=== PATIENT | male | born 1940 | race Caucasian/White ===

== ENCOUNTER 2020-04-17 07:51 | Day surgery (SDC) | payer MEDICARE ==
[2020-04-16 10:06] LABS: BASOPHILS % (AUTO) 1 % (0-1); EOSINOPHILS % (AUTO) 2 % (1-7); LYMPHOCYTES % (AUTO) 18 % (22-44); MEAN CORPUSCULAR HEMOGLOBIN 33.4 pg (27.5-34.5); MEAN CORPUSCULAR HGB CONC 34.2 g/dL (33.2-36.2); MEAN PLATELET VOLUME 8.6 fL (7.4-10.4); MONOCYTES % (AUTO) 10 % (2-9); NEUTROPHILS % (AUTO) 70 % (42-75); PLATELET COUNT 226 x10^3/uL (130-400); RED BLOOD COUNT 4.56 x10^6/uL (4.38-5.82); RED CELL DISTRIBUTION WIDTH 12.8 % (9.4-14.8)
[2020-04-16 10:07] LABS: MD NO
[2020-04-16 10:15] LABS: ALBUMIN 3.7 g/dL (3.4-5.0); ANION GAP 4 mmol/L (5-15); CALCIUM 8.8 mg/dL (8.5-10.1); CHLORIDE 109 mmol/L (98-107); PROTHROMBIN TIME 10.7 Seconds (9.6-11.5)
[2020-04-16 10:19] LABS: ALANINE AMINOTRANSFERASE 26 U/L (12-78); ALKALINE PHOSPHATASE 88 U/L (45-117); BILIRUBIN,TOTAL 0.8 mg/dL (0.2-1.0); CREATININE 0.98 mg/dL (0.7-1.3)
[~2020-04-17] VITALS: Ht 175.3 cm; Wt 83.7 kg
[~2020-04-17 07:51] MED LIST: ASCO250T12 PO; ASPI81TA45 PO; ATOR10TA9 PO; BENA10TA59 PO; CALC1CAP8 PO; CHOL10003 PO; EPINEPHRINE 1 MG/ML, 1ML ONE; KETOROLAC 60 MG/2 ML ONE; MULT-658 PO; OMEG1CAP25 PO; ROPIvacaine/PF 0.5%, 20 ML ONE; ROPIvacaine/PF 0.5%, 30 ML ONE; SODIUM CHLORIDE 0.9% 50 ML ONE; TRANEXAMIC ACID 100 MG/ML, 10ML ONE; UBID1CAP43 PO; VANCOMYCIN 1,000 MG ONE; VITA400C43 PO; collagen PO; magnesium PO
[2020-04-17 08:36] VITALS: BP 132/68
[2020-04-17] MEDS ORDERED: LACTATED RINGERS 1,000 ML IV SCH (09:00)
[2020-04-17] MEDS ORDERED: CHLORHEXIDINE 15 ML UDC MM ONE (09:00)
[2020-04-17] MEDS ORDERED: ACETAMINOPHEN 500 MG TABLET PO ONE (09:00)
[2020-04-17] MEDS ORDERED: GABAPENTIN 300 MG CAPSULE PO ONE (09:00)
[2020-04-17] MEDS ORDERED: FENTANYL PF 100 MCG/2ML ONE ×3 (09:37→11:48)
[2020-04-17] MEDS ORDERED: MIDAZOLAM 1 MG/ML, 2ML ONE (09:37)
[2020-04-17] MEDS ORDERED: SENNA/DOCUSATE TABLET PO PRN (10:00)
[2020-04-17] MEDS ORDERED: HYDROcodone/APAP 5/325 TABLET PO PRN (10:00)
[2020-04-17] MEDS ORDERED: DIPHENHYDRAMINE 50 MG CAPSULE PO PRN (10:00)
[2020-04-17] MEDS ORDERED: CEFAZOLIN PMX 2GM/50ML 50 ML IVPB SCH (10:00)
[2020-04-17] MEDS ORDERED: NS + 20MEQ KCL 1,000 ML IV SCH (10:00)
[2020-04-17] MEDS ORDERED: MAGNESIUM HYDROXIDE 8%, 30ML UDC PO PRN (10:00)
[2020-04-17] MEDS ORDERED: ZOLPIDEM 5MG TABLET PO PRN (10:00)
[2020-04-17] MEDS ORDERED: ACETAMINOPHEN 650 MG/20.3 ML UDC PO PRN (10:00)
[2020-04-17] MEDS ORDERED: ONDANSETRON 2MG/ML, 2ML IV PRN (10:00)
[2020-04-17] MEDS ORDERED: BISACODYL 10 MG SUPP PR PRN (10:00)
[2020-04-17] MEDS ORDERED: HYDROmorphone 1 MG/ML, 1ML INJ IV PRN (10:00)
[2020-04-17] MEDS ORDERED: OXYcodone IR 5MG TABLET PO PRN (10:00)
[2020-04-17] MEDS ORDERED: ONDANSETRON 4 MG TABLET PO PRN (10:00)
[2020-04-17] MEDS ORDERED: SUGAMMADEX 200 MG/2 ML IVPush ONE (10:05)
[2020-04-17] MEDS ORDERED: NEOSTIGMINE 1 MG/ML, 10ML ONE (10:36)
[2020-04-17] MEDS ORDERED: hydrALAzine 20 MG/ML, 1ML ONE (10:36)
[2020-04-17] MEDS ORDERED: SUCCINYLCHOLINE 20 MG/ML, 10ML ONE (10:36)
[2020-04-17] MEDS ORDERED: CEFAZOLIN 1,000 MG ONE (10:36)
[2020-04-17] MEDS ORDERED: ROCURONIUM 10MG/ML,5ML ONE (10:36)
[2020-04-17] MEDS ORDERED: ONDANSETRON 2MG/ML, 2ML ONE (10:36)
[2020-04-17] MEDS ORDERED: PROPOFOL 10 MG/ML, 20ML ONE (10:36)
[2020-04-17] MEDS ORDERED: GLYCOPYRROLATE 0.2MG/1ML, 5ML ONE (10:36)
[2020-04-17] MEDS ORDERED: DEXAMETHASONE 4 MG/ML, 1ML ONE (10:36)
[2020-04-17] MEDS ORDERED: PROMETHAZINE 25 MG/ML, 1ML IVPush PRN (11:30)
[2020-04-17] MEDS ORDERED: OXYcodone 5 MG/5 ML ORAL.SOL UDC PO PRN (11:30)
[2020-04-17] MEDS ORDERED: FENTANYL PF 100 MCG/2ML IV PRN (11:30)
[2020-04-17] MEDS ORDERED: HYDROmorphone 1 MG/ML, 1ML INJ IVPush PRN (11:30)
[2020-04-17] MEDS ORDERED: ONDANSETRON 2MG/ML, 2ML IVPush PRN (11:30)
[2020-04-17] MEDS ORDERED: HYDROcodone/APAP 7.5-325MG/15ML UDC PO PRN (11:30)
[2020-04-17] MEDS ORDERED: MEPERIDINE/PF 25MG/0.5ML IVPush PRN (11:30)
[2020-04-17] MEDS ORDERED: OXYcodone 5 MG/5 ML ORAL.SOL UDC ONE ×2 (11:48→12:04)
[2020-04-17] MEDS ORDERED: ASPIRIN 81 MG TABLET EC PO SCH (18:00)
[2020-04-17] MEDS ORDERED: DOCUSATE 100 MG CAPSULE PO SCH (21:00)
[2020-04-17] MEDS ORDERED: BENAZEPRIL 10 MG TABLET PO SCH (21:00)
[2020-04-18] MEDS ORDERED: DEXAMETHASONE 4 MG/ML, 1ML IVPush SCH (06:00)
== END 2020-04-17 15:00 | disposition home or self-care (01) ==
LOC: OUT 07:51
PROVIDERS: ATTEND Orthopaedic Surgery
DX: M17.12 Unilateral primary osteoarthritis, left knee (principal); M25.762 Osteophyte, left knee; G89.18 Other acute postprocedural pain; I10 Essential (primary) hypertension; J45.909 Unspecified asthma, uncomplicated; G47.30 Sleep apnea, unspecified; Z20.822 Contact with and (suspected) exposure to COVID-19; Z79.01 Long term (current) use of anticoagulants; Z79.899 Other long term (current) drug therapy; Z87.891 Personal history of nicotine dependence; Z82.61 Family history of arthritis; Z82.49 Family history of ischemic heart disease and other diseases of the circulatory system
CPT/HCPCS: 27447; 36415; 64447; 80053; 83036; 85025; 85610; 85730; 87081; 87147; 93005; 97162; C1713; C1776; J0171; J0330; J0360; J0690; J1100; J1885; J2250; J2405; J2704; J2710; J2795; J3010; J3370; J7120; U0003